=== PATIENT | male | born 1965 | race African-American/Black ===

== ENCOUNTER 2017-05-02 18:57 | Emergency (ER) | payer SELFPAY ==
--- NOTE | 2017-05-02 19:57 | ER Document Report ---
HPI - HPI Patient complains to provider of: flank pain and urinary frequency Pain Level: 3 Context: Patient is a 51-year-old male who presents emergency department complaining of flank pain as well as urinary frequency. Patient states that he has been having the symptoms for the past 4 days and that he is concerned he has a urinary tract infection. He also admits that 1 of his sexual partners approximately 7 months ago tested positive for chlamydia so he would like to be positive positive for that as well today. Patient denies any history of STDs, denies any penile drainage, pyuria or hematuria. Patient denies any fevers. Past medical history significant for hypertension Past Medical History - Social History Smoking Status: Never Smoker Family History: Reviewed & Not Pertinent Vertical Provider Document - CONSTITUTIONAL Agree With Documented VS: Yes Notes: PHYSICAL EXAM GENERAL: Alert, interacts well. LUNGS: Clear to auscultation bilaterally, no wheezes, rales, or rhonchi. No respiratory distress. HEART: Regular rate and rhythm. No murmurs, gallops, or rubs. ABDOMEN: Soft, nondistended, nontender. No guarding, rebound, or rigidity.. Bowel sounds present in all 4 quadrants. Back: Negative for CVA tenderness bilaterally, negative for any para spinous muscle tenderness, spinous process tenderness. EXTREMITIES: Moves all 4 extremities spontaneously. No edema, radial and dorsalis pedis pulses 2/4 bilaterally. No cyanosis. NEUROLOGICAL: Alert and oriented x4. Normal speech. PSYCH: Normal affect, normal mood. SKIN: Warm, dry, normal turgor. No rashes or lesions noted. - INFECTION CONTROL TRAVEL OUTSIDE OF THE [place] IN LAST 30 DAYS: No - RESPIRATORY O2 Sat by Pulse Oximetry: 95 Course - Re-evaluation Re-evalutation: 05/02/17 20:46 Patient is a 51-year-old male who is hemodynamically stable, no acute distress afebrile. Urinalysis clean without any evidence of UTI or concern for pyelonephritis. Patient requesting treatment for chlamydia and gonorrhea. Discussed with [id number] we will touch base with him if he does positive. Otherwise patient given strict return precautions and is stable for discharge home. - Vital Signs Vital signs: Temp Pulse Resp BP Pulse Ox 99.2 F 81 20 142/83 H 95 05/02/17 19:07 05/02/17 19:07 05/02/17 19:07 05/02/17 19:07 05/02/17 19:07 Discharge - Discharge Clinical Impression: Urinary frequency Condition: Good Disposition: HOME, SELF-CARE Additional Instructions: There is no evidence of UTI noted on your workup today. You were treated for chlamydia and gonorrhea as well. He will receive a phone call today if you do test positive. If you do not receive a phone call you did test negative. Please be sure to use protection during sexual intercourse with new partners.
[2017-05-02 20:25] LABS: APPEARANCE,URINE CLEAR; BILIRUBIN,URINE NEGATIVE (NEGATIVE); GLUCOSE, URINE NEGATIVE (NEGATIVE); KETONES,URINE NEGATIVE (NEGATIVE); LEUKOCYTE ESTERASE,URINE NEGATIVE (NEGATIVE); NITRITE,URINE NEGATIVE (NEGATIVE); PROTEIN,URINE NEGATIVE (NEGATIVE); URINE SPECIFIC GRAVITY 1.029
[2017-05-02] MEDS ORDERED: CEFTRIAXONE INJ 250 MG VIAL IM ONE (20:45)
[2017-05-02] MEDS ORDERED: AZITHROMYCIN 250 MG TABLET PO ONE (20:45)
[2017-05-02] MEDS ORDERED: LIDOCAINE 1% INJ-PF (10 MG/ML) 30 ML SDV INJ ONE (20:45)
[2017-05-02 21:26] VITALS: BP 142/90
== END 2017-05-02 21:26 | disposition home or self-care (01) ==
LOC: ER 18:57
DX: R35.0 Frequency of micturition (principal); R10.9 Unspecified abdominal pain
CPT/HCPCS: 99284; 96372; 81001; 87491; 87591; J3490; J0696